=== PATIENT | male | born 1970 | race Caucasian/White ===

== ENCOUNTER → 2022-03-08 | Outpatient (CLI) | payer SELFPAY ==
[2022-03-08 16:35] LABS: Hematocrit 43.1 % (40-54); Mean Corp Hgb Conc 34.8 g/dL (32-36); Mean Corpuscular Hgb 31.7 pg (27.0-32.0); Mean Corpuscular Volume 91.1 fL (80-94); Mean Platelet Vol. 11.4 fl (6.2-12.0); Platelet Count 179 K/mm3 (150-450); RBC Distribution Width CV 12.3 % (11.6-14.6); RBC Distribution Width SD 41.1 fl (35.1-43.9); Red Blood Count 4.73 M/mm3 (4.6-6.2); White Blood Count 6.9 K/mm3 (4.4-11.0)
[2022-03-08 17:09] LABS: Anion Gap 8 (5-15); BUN 17 mg/dL (7-18); BUN/Creat Ratio 23.8 RATIO (10-20); Calcium,Total 8.8 mg/dL (8.5-10.1); Chloride 107 mmol/L (98-107); Creatinine, Serum 0.71 mg/dL (0.70-1.30); EST Glomerular Filtration Rate 123 mL/min (>60); Est Glom Filt Rate - Afr Amer 149 mL/min (>60); Glucose 98 mg/dL (74-106); Potassium 3.8 mmol/L (3.5-5.1); Sodium Level 140 mmol/L (136-145)
== END | disposition home or self-care (01) ==
PROVIDERS: PCP Nurse Practitioner Family; Referring Provider Internal Medicine Cardiovascular Disease; Visit Provider Internal Medicine Cardiovascular Disease
DX: R53.83 Other fatigue (principal)
CPT/HCPCS: 36415; 80048; 84443; 85027

== ENCOUNTER → 2022-03-16 | Outpatient (CLI) | payer SELFPAY ==
--- NOTE | 2022-03-16 10:25 | ECHOCS_ITS ---
Reason For Study: DYSPNEA Procedure This was a 2D Doppler, Color Flow transthoracic echocardiogram. The study was technically difficult. Contrast injection was performed. Exam performed in department. Left Ventricle Normal LV size. Mild concentric left ventricular hypertrophy. Mild to moderate global left ventricular systolic dysfunction. The left ventricular ejection fraction is 40 %. Diastolic function is indeterminate. Right Ventricle Normal right ventricle. Atria The left atrium is mildly enlarged. Normal right atrium. Mitral Valve Mild (1+) mitral valve insufficiency. Tricuspid Valve Normal tricuspid valve. Aortic Valve Mild (1+) aortic valve insufficiency. Pulmonic Valve The pulmonic valve is not well visualized. Great Vessels Normal sized aortic root. Pericardium/Pleural No pericardial effusion. Medication 22 gauge I.V. with prn adaptor inserted into right arm. Diluted definity 1.5ml given slow IV push to enhance endocardial definition. MMode/2D Measurements & Calculations LVIDd: 4.9 cm IVSd: 1.3 cm Ao root diam: 3.3 cm LVIDs: 4.3 cm LVPWd: 1.4 cm RVDd: 4.3 cm FS: 12.7 % LAV(MOD-bp): 84.6 ml LVAd ap4: 44.7 cm2 SV(MOD-sp4): 70.5 ml LAV(MOD-bp) Indexed: 37.1 ml/m2 LVLd ap4: 9.4 cm LAV(MOD-sp2): 101.2 ml EDV(MOD-sp4): 178.0 ml LAV(MOD-sp4): 61.4 ml EDV(sp4-el): 180.6 ml LVAs ap4: 30.9 cm2 LVLs ap4: 7.6 cm ESV(MOD-sp4): 107.6 ml ESV(sp4-el): 107.4 ml EF(MOD-sp4): 39.6 % EF(sp4-el): 40.5 % SV(sp4-el): 73.2 ml LA A4 area: 22.8 cm2 LA dimension(2D): 4.3 cm RA A4 area: 16.3 cm2 Time Measurements MV dec time: 0.17 sec Doppler Measurements & Calculations MV E max anthony: 104.8 cm/sec Lat Peak E' Anthony: 14.5 cm/sec Med Peak E' Anthony: 8.2 cm/sec MV A max anthony: 54.0 cm/sec E/E' lat: 7.2 E/E' med: 12.8 MV E/A: 1.9 MV V2 max: 80.2 cm/sec MV dec slope: 612.8 cm/sec2 Ao V2 max: 165.1 cm/sec MV max P.6 mmHg Ao max P.9 mmHg MV V2 mean: 36.6 cm/sec Ao V2 mean: 105.4 cm/sec MV mean P.68 mmHg Ao mean P.3 mmHg MV V2 VTI: 25.0 cm Ao V2 VTI: 37.2 cm AV (velocity ratio): 0.79 LV V1 max: 135.1 cm/sec PA V2 max: 82.3 cm/sec LV V1 max P.4 mmHg LV V1 mean P.5 mmHg LV V1 mean: 84.3 cm/sec LV V1 VTI: 29.6 cm ECHO/Echo Complete W/ Contrast Interpretation Summary Mild concentric left ventricular hypertrophy. Mild to moderate global left ventricular systolic dysfunction. The left ventricular ejection fraction is 40-45 %. The left atrium is mildly enlarged. Mild (1+) mitral valve insufficiency. Diastolic function is indeterminate. Mild (1+) aortic valve insufficiency. Ordering Physician: Quynh Kitchen Referring Physician: NORMAN FINK Performed By: Vanita Velasquez RCS
--- NOTE | 2022-03-16 12:51 | STRESSREP ---
Stress Test Report Date: 03/16/2022 Procedure: Exercise tolerance test Indications: Arrhythmia Consent: Per the patient Procedure: The patient exercised on a Chadd protocol for 6 minutes achieving a peak heart rate of 133 bpm (78% predicted maximal heart rate) with a peak blood pressure 132/68 mmHg and a peak MET capacity of approximately 7 MET's. The baseline ECG demonstrated sinus bradycardia with frequent PVCs. The peak exercise ECG demonstrated no ischemic changes. PVCs noted. The functional capacity was considered decreased. The patient had no complaints of chest discomfort during exercise or recovery. The examination was discontinued secondary to fatigue and dyspnea. Impression: 1. Suboptimal stress test secondary to only 78% of maximum predicted heart rate being achieved. 2. Peak exercise ECG with no ischemic changes. 3. Frequent PVCs at rest as well as with exercise and recovery. This note was generated with [employer] software. It may contain incorrect words, spelling, and punctuation that were not noted in checking the note before signing.
== END | disposition home or self-care (01) ==
PROVIDERS: PCP Nurse Practitioner Family; Visit Provider Internal Medicine Cardiovascular Disease
DX: R06.02 Shortness of breath (principal); R00.1 Bradycardia, unspecified
CPT/HCPCS: 93017; 93225; 93226; 93306; Q9957; A4216; C8929